=== PATIENT | female | born 1985 | race Caucasian/White ===

== ENCOUNTER 2019-08-19 12:36 | Inpatient (IN) | payer MEDICAID ==
[~2019-08-19] VITALS: Ht 162.6 cm; Wt 64.2 kg
[~2019-08-19 12:36] MED LIST: CLEOCIN HC150 MG/CAP PO; CLINDAMYCIN150 MG PO; FLEXERIL 1010 MG/TAB PO; IRON SUPPLEMENT; MACROBID 1100 MG/CAP PO; NAPROSYN500 MG PO; NO HOME MEDICATIONS; NORCO 325 MG-51 TAB PO; PHENERGAN 25 TA25 MG PO; PRENATAL VITAMI1 TA5 PO
[2019-08-19 13:22] LABS: BASO % 0.4 % (0.0-2.0); EOS % 0.1 % (0-4.0); GRAN # 8.6 (1.4-6.5); HEMATOCRIT 41.6 % (37.0-47.0); LYMPH # 0.9 (1.2-3.4); LYMPH % 8.9 % (20.0-51.0); MEAN CELL VOLUME 92 fl (80.0-100.0); MEAN CORPUSCULAR HEMOGLOBIN 31 pg (27.0-31.0); MEAN CORPUSCULAR HGB CONC 34 g/dl (33.0-37.0); MEAN PLATELET VOLUME 9.6 fl (7.4-10.4); MONO # 0.6 (0.1-0.6); MONO % 5.9 % (1.7-9.3); PLATELET COUNT 161 K/mm3 (130-400); RED BLOOD COUNT 4.54 M/mm3 (4.10-5.30); REDCELL DISTRIBUTION WIDTH-CV 12.2 % (11.5-14.5)
[2019-08-19 13:27] LABS: ALBUMIN 4.4 gm/dL (3.5-5.0); BILIRUBIN,TOTAL 1.4 mg/dL (0.0-1.0); CALCIUM 9.4 mg/dL (8.4-10.2); CREATININE, serum 0.94 (0.52-1.25); POTASSIUM 3.7 mmol/L (3.4-5.0)
[2019-08-19 13:38] LABS: C-REACTIVE PROTEIN 24.3 mg/dL (0.0-0.9)
[2019-08-19 14:21] LABS: COLLECTION METHOD CLEAN CATCH
[2019-08-19 14:37] LABS: MUCOUS Present /lpf; PH 5 (5-8); URINE APPEARANCE Hazy; URINE BACTERIA Many /hpf; URINE BILIRUBIN Positive (NEGATIVE); URINE BLOOD Negative (NEGATIVE); URINE COLOR Amber; URINE GLUCOSE Negative (NEGATIVE); URINE KETONE 1+ (NEGATIVE); URINE LEUKOCYTE ESTERASE Trace (NEGATIVE); URINE NITRATE Positive (NEGATIVE); URINE PROTEIN(semi-quant) 2+ (NEGATIVE); URINE UROBILINOGEN >=4.0 mg/dL (NEGATIVE)
[2019-08-19 17:56] VITALS: BP 103/60; PULSE 104; TEMP 98.9
--- NOTE | 2019-08-19 18:37 | NUR ---
Report received from ER nurse. Patient to room 349. Inital completed by Senior Analyst Programmer. Patient reports no home medication. 5 page assessment completed to the best of my ability, patient falling asleep easy. SHe does arouse easy. Patient reports being hot. Temp 98.9. Air turned down in room & cool wash cloth provided. Patient had small emesis upon arrival to room. Green in color. Prn Zofran given. Dilaudid Php Website Developer started. Verified with charge nurse Heidi. Iv in [place]. Will let patient rest & report off to night nurse. Update given to patient father.
[2019-08-19 19:33] VITALS: BP 101/64; PULSE 111; TEMP 98.8
[2019-08-19 19:45] VITALS: BP 101/64; PULSE 111
[2019-08-19 23:27] VITALS: BP 98/55; PULSE 98; TEMP 98.4
[2019-08-20] VITALS (11 sets, daily range): BP systolic 91–104; BP diastolic 49–67; PULSE 84–110; TEMP 98.1–99.3
--- NOTE | 2019-08-20 05:17 | NUR ---
Patient has rested well throughout the night. Noted to be drowsy from APPLICATION ARCHITECT MANAGER. APPLICATION ARCHITECT MANAGER continues and patient states her pain is managed. Continues on IV antibiotics. Noted to be tachycardic. Patient has had ice chips very sparingly this shift. IV to left AC flushes with ease. Bowel sounds noted to be hypoactive. Patient up to the bathroom with stand-by assist d/t pain medication making her feel "high". Gait noted to be steady. Noted to have some nausea and a little bit of emesis at the beginning of the shift. Patient has had no more emesis since then. Will continue to monitor.
--- NOTE | 2019-08-20 06:45 | NUR ---
appears to be sleeping, bedside shift report received from TIARRA Camargo
[2019-08-20 06:50] LABS: MEAN CELL VOLUME 93 fl (80.0-100.0); MEAN CORPUSCULAR HGB CONC 34 g/dl (33.0-37.0); MEAN PLATELET VOLUME 9.7 fl (7.4-10.4); PLATELET COUNT 149 K/mm3 (130-400); RED BLOOD COUNT 3.84 M/mm3 (4.10-5.30); REDCELL DISTRIBUTION WIDTH-CV 12.2 % (11.5-14.5)
[2019-08-20 07:11] LABS: HEMATOCRIT 35.6 % (37.0-47.0); MEAN CORPUSCULAR HEMOGLOBIN 31 pg (27.0-31.0)
--- NOTE | 2019-08-20 07:30 | NUR ---
awake and resting in bed with lights off, states pain is 8/10 and has been using AIRPLANE PILOT, no grimacing, moaning or moving about in bed, IV site intact without s/s of infiltration, denies needs at this time
--- NOTE | 2019-08-20 09:10 | NUR ---
full assessment completed, see interventions for further info, has continued to use GALLERY OR MUSEUM CURATOR and states it helps the pain, denies needs, taking ice chips sparingly
[2019-08-20 09:36] LABS: BAND 42 % (0-10); EOSINOPHIL 1 % (0-4); LYMPHOCYTE 12 % (20.0-51.0); NEUTROPHILS 40 % (42.0-75.2); PLATELET ESTIMATE NORMAL (NORMAL)
[2019-08-20 11:00] LABS: ALBUMIN 3.2 gm/dL (3.5-5.0); BILIRUBIN,TOTAL 0.9 mg/dL (0.0-1.0); CALCIUM 8.6 mg/dL (8.4-10.2); CREATININE, serum 0.72 (0.52-1.25); POTASSIUM 4.6 mmol/L (3.4-5.0); TOTAL PROTEIN 6.1 gm/dL (6.4-8.2)
--- NOTE | 2019-08-20 11:00 | NUR ---
Dr Moy was in to see patient, assisted her with am hygiene, states she is feeling a little better
--- NOTE | 2019-08-20 11:11 | NUR ---
SW met with patient to complete intake and discharge plan. Patient states that she lives with her mom Sabrina [phone], father Vincent [phone] and her two boys. Patient provides that she does not utilize any DME, and is independent with ADL's. Patient states that her PCP is Dr. Edilberto Enamorado, and states that she is able to afford her medications. She provides that she obtains her medications from [facility]. Patient states that she does not have a DPOA-HC, but would like to appoint her mom and dad. SW presented the DPOA-HC documentation to patient, but patient stated that she would like to review the documentation before completing. Patient states that she plans to go back to her home upon discharge, and feels safe doing so. Patient states she has no questions or concerns about discharge. SW to continue to follow.
--- NOTE | 2019-08-20 14:00 | NUR ---
has been resting through the late morning and afternoon, assisted up to bathroom and voids clear aden urine, then back to bed, continues to use ORDNANCE ENGINEERING TECHNICIAN for pain control
--- NOTE | 2019-08-20 18:50 | NUR ---
bedside shift report given to TIARRA Torrez
--- NOTE | 2019-08-20 20:00 | NUR ---
Report received, assumed care for hotel night auditor. Assessment complete. A&Ox3-drowsy. Reports pain of 6/10 in [id number] dilaudid helps significantly. Denies shortness of breath/nausea. IV to left AC infusing fluids without s/s of infiltration. Denies needs. Call light in reach. will monitor.
--- NOTE | 2019-08-20 21:00 | NUR ---
Called for assistance to get up to bathroom. Voided dark aden urine. Emesis of approx 50mls of light green fluid. Will continue to monitor.
[2019-08-21] VITALS (11 sets, daily range): BP systolic 93–104; BP diastolic 38–62; PULSE 61–98; TEMP 98.1–99.1
--- NOTE | 2019-08-21 04:00 | NUR ---
Rested off and on this shift. Dilaudid DIRECTOR OUTPATIENT SERVICES has decreased pain-states its within an acceptable range for her compared to before admit. Had one episode of emesis this shift-green in color-approx 50mls. Max temp this shift was 100.1. Gave IS and used every hour x10 reps-temp came down to 98.4. Denies current needs. Call light in reach. Will monitor.
[2019-08-21 06:42] LABS: CALCIUM 8.3 mg/dL (8.4-10.2); CREATININE, serum 0.67 (0.52-1.25); POTASSIUM 3.8 mmol/L (3.4-5.0)
[2019-08-21 06:44] LABS: HEMOGLOBIN 10.6 g/dl (12.5-16.0); MEAN CELL VOLUME 92 fl (80.0-100.0); MEAN CORPUSCULAR HEMOGLOBIN 32 pg (27.0-31.0); MEAN CORPUSCULAR HGB CONC 34 g/dl (33.0-37.0); MEAN PLATELET VOLUME 9.5 fl (7.4-10.4); PLATELET COUNT 127 K/mm3 (130-400); RED BLOOD COUNT 3.37 M/mm3 (4.10-5.30); REDCELL DISTRIBUTION WIDTH-CV 12.3 % (11.5-14.5)
--- NOTE | 2019-08-21 07:17 | NUR ---
Pt NODULIZER pump was beeping due to medication near ending. Pt hydromorphone NODULIZER vial was replaced at this time with a 30 ml vial at 2338. Pt has slept well thorughout the night. Pt has ambulated to the restroom several times. Pt is currently resting in bed and has her call light within reach.
[2019-08-21 08:07] LABS: BAND 13 % (0-10); LYMPHOCYTE 3 % (20.0-51.0); NEUTROPHILS 78 % (42.0-75.2); PLATELET ESTIMATE NORMAL (NORMAL)
--- NOTE | 2019-08-21 10:00 | NUR ---
Patient sleepy, arouses to verbal stimuli. Answers questions appropriately, but nods off frequently during exam. Abdomen soft, non tender, non distended. Bowel sounds active x4 quads. +Flatus. No c/o pain or discomfort. TAPE DECK INSTALLER settings verified against MAR.
--- NOTE | 2019-08-21 11:00 | NUR ---
Dr Moy notified of drowsiness, orders to modify REFUELING RAMP ATTENDANT received.
--- NOTE | 2019-08-21 15:17 | NUR ---
Dr Moy here to see patient.
--- NOTE | 2019-08-21 19:31 | NUR ---
Received report from TIARRA Brandt. Pt currently lying in bed and sleeping at this time she has her call light and REGULATORY SPECIALIST button within reach.
[2019-08-22] VITALS (10 sets, daily range): BP systolic 91–124; BP diastolic 46–68; PULSE 68–91; TEMP 98–99.9
--- NOTE | 2019-08-22 06:25 | NUR ---
Pt currently resting in bed, pt did call out due to her IV pump beeping. Pt IV was addressed and pt is lying in bed and has her call light and her COSMETICS SUPERVISOR button within reach.
[2019-08-22 06:41] LABS: BASO % 0.3 % (0.0-2.0); EOS # 0.2 (0.0-0.7); EOS % 1.7 % (0-4.0); GRAN # 7.7 (1.4-6.5); GRAN % 80.7 % (42.2-75.2); LYMPH # 0.8 (1.2-3.4); LYMPH % 7.8 % (20.0-51.0); MEAN CELL VOLUME 91 fl (80.0-100.0); MEAN CORPUSCULAR HGB CONC 34 g/dl (33.0-37.0); MONO # 0.8 (0.1-0.6); MONO % 8.2 % (1.7-9.3); PLATELET COUNT 140 K/mm3 (130-400); RED BLOOD COUNT 3.14 M/mm3 (4.10-5.30); REDCELL DISTRIBUTION WIDTH-CV 12.8 % (11.5-14.5)
[2019-08-22 06:43] LABS: HEMATOCRIT 28.6 % (37.0-47.0); HEMOGLOBIN 9.8 g/dl (12.5-16.0); MEAN CORPUSCULAR HEMOGLOBIN 31 pg (27.0-31.0)
--- NOTE | 2019-08-22 09:50 | NUR ---
Patient alert and oriented, answers questions appropriately. See assessment. Abdomen soft, non tender, non distended. Bowel sounds active x4 quads. +Flatus. No c/o pain or discomfort. No other c/o at this time.
[2019-08-23] VITALS: BP 102/50; PULSE 75; TEMP 99.2
[2019-08-23 04:05] VITALS: BP 90/50; PULSE 63; TEMP 98.5
--- NOTE | 2019-08-23 05:00 | NUR ---
Patient has been sleeping most the night. She had some increased pain this morning and increased N/V. Winslow seems to be controlling her pain most the time. Reminded her to not let it get out of control. Explained how often she can have it. No other changes at this time. Call light within reach.
--- NOTE | 2019-08-23 07:45 | NUR ---
Patient resting in bed. Called out, she had emesis. notifed. Orders to resume IVF. I had spoke to him this am as well and recieved lab orders. Zofran was given. She did refused breakfast at this time. Patient reports pain 9/10-may cause nausea. Iv dilaudid given. Patient also has been taking PO medication on an empty stomach which could also be influencing her nausea. Patient voiding, tea colored urine. She reports passing flatus, but no BM since admitted into the hospital. Reviewed the importance of this. Will monitor closely.
[2019-08-23 07:56] VITALS: BP 94/60; PULSE 65; TEMP 98.5
[2019-08-23 08:16] LABS: HEMOGLOBIN 10.8 g/dl (12.5-16.0); MEAN CELL VOLUME 90 fl (80.0-100.0); MEAN CORPUSCULAR HEMOGLOBIN 30 pg (27.0-31.0); MEAN CORPUSCULAR HGB CONC 34 g/dl (33.0-37.0); MEAN PLATELET VOLUME 9.1 fl (7.4-10.4); PLATELET COUNT 156 K/mm3 (130-400); RED BLOOD COUNT 3.58 M/mm3 (4.10-5.30); REDCELL DISTRIBUTION WIDTH-CV 13.1 % (11.5-14.5)
[2019-08-23 08:18] LABS: HEMATOCRIT 32.2 % (37.0-47.0)
[2019-08-23 08:26] LABS: CALCIUM 8.2 mg/dL (8.4-10.2); CREATININE, serum 0.63 (0.52-1.25); POTASSIUM 3.3 mmol/L (3.4-5.0)
--- NOTE | 2019-08-23 09:11 | NUR ---
notfied of low K+ level. Orders obtained. Patietn resting reports pain & nausea slightly improved
[2019-08-23 09:59] LABS: BAND 23 % (0-10); EOSINOPHIL 2 % (0-4); LYMPHOCYTE 20 % (20.0-51.0); METAMYELOCYTE 5 % (0-0); NEUTROPHILS 46 % (42.0-75.2); PLATELET ESTIMATE NORMAL (NORMAL)
[2019-08-23 11:33] VITALS: BP 93/52; PULSE 60; TEMP 97.8
--- NOTE | 2019-08-23 11:43 | NUR ---
First visit from the finishing inspector. No needs right now.
--- NOTE | 2019-08-23 14:12 | NUR ---
Patient resting in bed. She reports nausea is improoved, but minimal interest in food. Continues to rate pain elevated 8/10. Dilaudid request. Patient refused shower, acticity highly encouraged.
[2019-08-23 15:51] VITALS: BP 107/70; PULSE 72; TEMP 99.1
--- NOTE | 2019-08-23 19:44 | NUR ---
Patient continues to rest in bed. She was up and took a shower this afternoon, she reports that made her feel better. I encouraged ambulation in the hallway. No interest. K+ finished. Labs to be re drawn in am. She had no dinner, she did have a popcicle. Miko for nausea. Bedside report to Ava.
--- NOTE | 2019-08-23 21:27 | NUR ---
Patient transferred to room 321 per hospital management. House suporvisor notified patient. Bedside report to OB nurse. All questions answered.
[2019-08-23 22:26] VITALS: BP 106/70; PULSE 65; TEMP 99.5
[2019-08-24 03:15] VITALS: BP 101/62; PULSE 65; TEMP 98.8
[2019-08-24 07:13] LABS: HEMOGLOBIN 10.3 g/dl (12.5-16.0); MEAN CELL VOLUME 91 fl (80.0-100.0); MEAN CORPUSCULAR HEMOGLOBIN 30 pg (27.0-31.0); MEAN CORPUSCULAR HGB CONC 34 g/dl (33.0-37.0); PLATELET COUNT 173 K/mm3 (130-400); RED BLOOD COUNT 3.39 M/mm3 (4.10-5.30); REDCELL DISTRIBUTION WIDTH-CV 13.4 % (11.5-14.5)
[2019-08-24 07:15] LABS: HEMATOCRIT 30.7 % (37.0-47.0)
[2019-08-24 07:20] LABS: CREATININE, serum 0.61 (0.52-1.25); POTASSIUM 3.6 mmol/L (3.4-5.0)
[2019-08-24 07:25] VITALS: BP 100/60; PULSE 50; TEMP 98.6
--- NOTE | 2019-08-24 09:53 | NUR ---
IV TO LEFT AC INFILTRATED WITH D5NS RUNNING AT 75 ML/HR. SWELLING TO ARM AND HAND NOTED. IV SITE DISCONTINUED.
--- NOTE | 2019-08-24 10:00 | NUR ---
LEFT ARM SWOLLEN D/T INFILTRATED IV. WARM BLANKET APPLIED TO ARM.
[2019-08-24 10:25] LABS: BAND 15 % (0-10); EOSINOPHIL 3 % (0-4); LYMPHOCYTE 33 % (20.0-51.0); NEUTROPHILS 40 % (42.0-75.2)
[2019-08-24 10:30] LABS: PLATELET ESTIMATE NORMAL (NORMAL)
[2019-08-24 10:31] LABS: OVALOCYTES 1+
[2019-08-24 11:33] VITALS: BP 99/56; PULSE 58; TEMP 98.5
--- NOTE | 2019-08-24 13:00 | NUR ---
LEFT ARM REMAINS SWOLLEN R/T INFILTRATED IV. ARM ELEVATED ANS ICE PACK APPLIED.
--- NOTE | 2019-08-24 14:37 | NUR ---
CALL TO [facility] TO SEE OF THERE WAS A TIME FRAME DR. FERNANDO WOULD BE MAKING ROUNDS ON PATIENT. RN TOLD DR FERNANDO HAS BEEN WORKING IN [place] ALL MORNING AND JUST GOT TO THE [facility] OFFICE, SO SHOULD BE MAKING ROUNDS THIS AFTERNOON. STRINGER UP SOLDERING MACHINE WILL LET DR. FERNANDO'S NURSE KNOW THAT PATIENT HAS NOT BEEN SEEN TODAY.
--- NOTE | 2019-08-24 14:46 | NUR ---
PATIENT SLEEPING COMFORTABLY. IVF RUNNING AT 75 MLS/HOUR. PATIENT HAS BEEN SIPPING WATER AND SPRITE THROUGHOUT DAY, DENIES HAVING AN APPETITE AND C/O INTERMITTANT NAUSEA WITHOUT VOMITING.
[2019-08-24 16:33] VITALS: BP 1611/62; PULSE 51; TEMP 97.8
--- NOTE | 2019-08-24 17:26 | NUR ---
Dr. Moy here to assess patient. See physician documentation.
[2019-08-24 19:00] VITALS: BP 108/59; PULSE 50; TEMP 98; TEMP 98.8
[2019-08-24 23:30] VITALS: BP 114/62; PULSE 50; TEMP 98.8
[2019-08-25] VITALS (20 sets, daily range): BP systolic 103–120; BP diastolic 61–78; PULSE 53–88; TEMP 98.2–101.4
[2019-08-25 07:45] LABS: HEMOGLOBIN 11.1 g/dl (12.5-16.0); MEAN CELL VOLUME 90 fl (80.0-100.0); MEAN CORPUSCULAR HEMOGLOBIN 30 pg (27.0-31.0); MEAN CORPUSCULAR HGB CONC 34 g/dl (33.0-37.0); PLATELET COUNT 188 K/mm3 (130-400); RED BLOOD COUNT 3.65 M/mm3 (4.10-5.30); REDCELL DISTRIBUTION WIDTH-CV 13.5 % (11.5-14.5)
[2019-08-25 08:03] LABS: BAND 24 % (0-10); BASOPHIL 1 % (0-2); EOSINOPHIL 2 % (0-4); LYMPHOCYTE 13 % (20.0-51.0); METAMYELOCYTE 4 % (0-0); NEUTROPHILS 52 % (42.0-75.2); OVALOCYTES 1+
[2019-08-25 08:04] LABS: PLATELET ESTIMATE NORMAL (NORMAL)
--- NOTE | 2019-08-25 09:41 | NUR ---
9078 PATIENT STATES FEELS WORSE TODAY. DECREASED BOWEL SOUNDS NOTED. DR FERNANDO AT BEDSIDE TO ASSESS AND DISCUSS OPTIONS WITH PATIENT.
--- NOTE | 2019-08-25 10:22 | NUR ---
[address] WITH STAFF FOR A CT SCAN PER DR ORDER, PATIENT SENT VIA WHEELCHAIR.
--- NOTE | 2019-08-25 10:35 | NUR ---
PT WAS BROUGHT DOWN IN HER BED AND TRANSFERED TO TABLE. MONITORING EQUIPMENT PLACED AND IMAGING DONE.
--- NOTE | 2019-08-25 11:20 | NUR ---
[address] DRAIN PLACED BY REPORT RECIEVED AT THIS TIME. ASSIST PATIENT TO BED WITH MINIMAL ASSIST. PATIENT STATES HAS LESS PAIN AND NEASEA AT THIS TIME. VITAL SIGNS WNL.
--- NOTE | 2019-08-25 11:43 | NUR ---
1145 PATIENT RATES PAIN A 8OUT OF 10 BUT DOES NOT WANT PAIN MEDS AT THIS TIME.
--- NOTE | 2019-08-25 12:30 | NUR ---
1230 REPORT GIVEN TO SURGICAL NURSE RN TO ASSUME CARE AT THIS TIME.
--- NOTE | 2019-08-25 12:50 | NUR ---
Patient to room from L&D via wheelchair. Patient feels cold and is shivering. Having increase in pain in abd with all the movement. Patient transfers self to bed with stand by assist. Drain to right lower abd patent with minimal thick drainage noted in bag and tubing. Dressing to drain site CDI. Patient would like pain medication at this time. Will administer medication as prescribed at this time.
--- NOTE | 2019-08-25 15:33 | NUR ---
Patient has temp of 101.4. Dr. Moy notified. Orders received for ibuprofen. Will administer at this time.
--- NOTE | 2019-08-25 18:15 | NUR ---
Patient lying in bed with eyes open. Temp down to 99.5 orally. Patient says that her pain is not bad at this time. Drain to right lower abd with minimal drainage noted. Patient denies needs at this time.
[2019-08-26] VITALS (7 sets, daily range): BP systolic 104–117; BP diastolic 60–71; PULSE 59–93; TEMP 98.1–100.2
--- NOTE | 2019-08-26 05:09 | NUR ---
Patient has rested well throughout the night. Noted to have a temperature at 101.4. PRN Flowood given. Slightly effective. Temperature was reduced to 100.4. PRN Motrin given and temperature was reduced to 99.4. Patient had stated she had a "really bad headache" and the motrin was most effective. Drain to right abdomen to dependent drainage. Patient states feeling very weak. IVF continue to right hand. Bowel sounds hypoactive. Patient denies any further needs. Will continue to monitor.
[2019-08-26 08:13] LABS: BASO # 0.1 (0.0-0.2); BASO % 0.5 % (0.0-2.0); EOS # 0.1 (0.0-0.7); EOS % 0.3 % (0-4.0); GRAN # 19.1 (1.4-6.5); GRAN % 85.5 % (42.2-75.2); HEMOGLOBIN 11.4 g/dl (12.5-16.0); LYMPH # 1.5 (1.2-3.4); LYMPH % 6.5 % (20.0-51.0); MEAN CELL VOLUME 91 fl (80.0-100.0); MEAN CORPUSCULAR HEMOGLOBIN 31 pg (27.0-31.0); MEAN CORPUSCULAR HGB CONC 34 g/dl (33.0-37.0); MEAN PLATELET VOLUME 9.1 fl (7.4-10.4); MONO # 0.7 (0.1-0.6); PLATELET COUNT 221 K/mm3 (130-400); RED BLOOD COUNT 3.71 M/mm3 (4.10-5.30); REDCELL DISTRIBUTION WIDTH-CV 13.9 % (11.5-14.5)
[2019-08-26 08:34] LABS: HEMATOCRIT 33.6 % (37.0-47.0)
--- NOTE | 2019-08-26 08:44 | NUR ---
notifed of critical WBC. He was also made aware of patient oral thursh on her tounge. Orders obtained. Patient reports she has had thrush before. Patient reports nausea it is intermittent. No appetite. Pain at drain site. Pain radiates to her R. thigh. Purulent drainage noted in her drain site.
[2019-08-26 09:10] LABS: CALCIUM 8.7 mg/dL (8.4-10.2); CREATININE, serum 0.5 (0.52-1.25); POTASSIUM 3.3 mmol/L (3.4-5.0)
--- NOTE | 2019-08-26 09:40 | NUR ---
Patient did have emesis after nystatin swish & swallow, refused zofran. Ice pack & cool cloth provided.
--- NOTE | 2019-08-26 11:55 | NUR ---
rounded. PO intake & activity to be highly encouraged today.
--- NOTE | 2019-08-26 13:53 | NUR ---
Patient resting in bed. She was up to the bathroom & voided, dark urine. We ambulated the halls, she was slow to move & felt weak.
--- NOTE | 2019-08-26 19:24 | NUR ---
was notifed this evening of patients low grade temp & Emesis. Orders obtained. Once K+ completed infusing, procalimine to start per orders. K+ had to infuse slowly due to burning in patients hand for IV. Patient continues to refuse zofran, but did take Iv pain medication because she believed increased pain caused her emesis. Drain remains to DD with purulent output. Patient did ambulated the halls again this evening. Report to Mary Jo MAYEN
--- NOTE | 2019-08-27 03:31 | NUR ---
Patient completed potassium infusion. New IV started to right forearm d/t starting IV nutrition. Patient continues on IV antibiotics. Patient continues on nystatin for her thrush. Patient was unable to swallow the nystatin d/t vomiting, but she was able to swish and spit. Patient complained of heartburn. Dr. Pavon notified and ordered TUMS 500-1000mg q4hr as needed. EMAR updated. TUMS administered. Patient stated it was slightly effective. Noted to have a fever at 101.4. PRN Motrin administered and patient immediately had emesis. Patient did not throw up her motrin. Fever reduced to 99.4. Patient c/o burning to her tongue after emesis. Patient appears to be to be in better spirits and more talkative tonight than my last shift with her. Drain has scant drainage in it. Will continue to monitor patient.
[2019-08-27 04:05] VITALS: BP 104/68; PULSE 98; TEMP 99
--- NOTE | 2019-08-27 06:34 | NUR ---
Attempted to flush INT to right hand. Resistance met and liquid noted to leak around catheter site. New 20G placed in left hand. Flushes with ease.
[2019-08-27 07:35] LABS: HEMOGLOBIN 11.1 g/dl (12.5-16.0); MEAN CELL VOLUME 90 fl (80.0-100.0); MEAN CORPUSCULAR HEMOGLOBIN 30 pg (27.0-31.0); MEAN CORPUSCULAR HGB CONC 34 g/dl (33.0-37.0); MEAN PLATELET VOLUME 10.1 fl (7.4-10.4); PLATELET COUNT 198 K/mm3 (130-400); RED BLOOD COUNT 3.66 M/mm3 (4.10-5.30); REDCELL DISTRIBUTION WIDTH-CV 13.9 % (11.5-14.5)
[2019-08-27 07:52] LABS: HEMATOCRIT 33.1 % (37.0-47.0)
[2019-08-27 07:57] VITALS: BP 108/72; PULSE 103; TEMP 98.4
[2019-08-27 09:04] LABS: CALCIUM 8.4 mg/dL (8.4-10.2); CREATININE, serum 0.47 (0.52-1.25); POTASSIUM 4.1 mmol/L (3.4-5.0)
[2019-08-27 09:46] LABS: BAND 15 % (0-10); LYMPHOCYTE 6 % (20.0-51.0); NEUTROPHILS 77 % (42.0-75.2)
[2019-08-27 09:47] LABS: PLATELET ESTIMATE NORMAL (NORMAL)
[2019-08-27 11:21] VITALS: BP 115/72; PULSE 74; TEMP 98
[2019-08-27 15:21] VITALS: BP 104/72; PULSE 80; TEMP 98.3
--- NOTE | 2019-08-27 18:54 | NUR ---
Patient has been doing very well today. Her intake has been better and no nausea. She has perked up more. She walked 4 times in the hallways. She sat up in the chair most the day. Minimal output from the drain. Minimal complaints of pain. She is hoping that if she eats more they won't start the TPN tomorrow. No other changes at this time. Call light within reach.
[2019-08-27 20:00] VITALS: BP 103/74; PULSE 80; TEMP 98
[2019-08-28] VITALS (7 sets, daily range): BP systolic 99–109; BP diastolic 37–72; PULSE 72–89; TEMP 97.9–98.8
[2019-08-28 05:44] LABS: HEMATOCRIT 34.5 % (37.0-47.0); HEMOGLOBIN 12.1 g/dl (12.5-16.0); MEAN CELL VOLUME 89 fl (80.0-100.0); MEAN CORPUSCULAR HEMOGLOBIN 31 pg (27.0-31.0); MEAN CORPUSCULAR HGB CONC 35 g/dl (33.0-37.0); MEAN PLATELET VOLUME 9.8 fl (7.4-10.4); PLATELET COUNT 221 K/mm3 (130-400); RED BLOOD COUNT 3.88 M/mm3 (4.10-5.30); REDCELL DISTRIBUTION WIDTH-CV 14.1 % (11.5-14.5)
[2019-08-28 05:57] LABS: CALCIUM 8.7 mg/dL (8.4-10.2); CREATININE, serum 0.49 (0.52-1.25); POTASSIUM 4.2 mmol/L (3.4-5.0)
--- NOTE | 2019-08-28 08:00 | NUR ---
Patient resting in bedside recliner eating breakfast at this time. IV antibiotics completed, patient is very sensitive to IV flushes. IV procalamine infusing per order. Patient denies needs at this time, call light within reach.
--- NOTE | 2019-08-28 10:52 | NUR ---
ANITA met with the patient to follow up and review discharge plan. The patient reports that she is doing a lot better now. She states that was up and walking yesterday and hopeful to get off of all IVs soon and take everything orally. She states that she still plans to returning back home with her family upon discharge. No additional needs at this time.
--- NOTE | 2019-08-28 17:47 | NUR ---
Patient resting in bedside recliner at this time. Patient has been independent in her room today, has ambulated in the halls with SBA a few times. Patient has denied pain that is not associated with IV flushes. Patient has eaten at least 40% of her meals today and has not had any episodes of nausea or emesis since this morning. MARYAM has had minimal output today, drain flushed per order with no results. Patient denies needs at this time, call light within reach.
--- NOTE | 2019-08-28 20:30 | NUR ---
Pt A/Ox4. Independent and ambulatory. Pt ambulated in hallways this evening. Denies pain, only tenderness to abdomen. Wound drainage bag intact to RLQ, dressing CDI. INT to LH and RFA intact, flushed, dressing CDI. Meds administered, pt refused nystatin and nicoderm patch at this time. Needs met at this time. Call light within reach. PRN tums administered as requested.
[2019-08-29 03:56] VITALS: BP 93/61; PULSE 74; TEMP 98
[2019-08-29 05:47] LABS: BASO # 0.1 (0.0-0.2); BASO % 0.4 % (0.0-2.0); EOS # 0.1 (0.0-0.7); EOS % 0.6 % (0-4.0); GRAN # 12.5 (1.4-6.5); GRAN % 73.3 % (42.2-75.2); LYMPH # 3.2 (1.2-3.4); LYMPH % 18.5 % (20.0-51.0); MEAN CELL VOLUME 91 fl (80.0-100.0); MEAN CORPUSCULAR HGB CONC 34 g/dl (33.0-37.0); MEAN PLATELET VOLUME 10.5 fl (7.4-10.4); MONO % 5.6 % (1.7-9.3); RED BLOOD COUNT 2.58 M/mm3 (4.10-5.30); REDCELL DISTRIBUTION WIDTH-CV 14.4 % (11.5-14.5)
[2019-08-29 05:51] LABS: HEMATOCRIT 23.5 % (37.0-47.0); HEMOGLOBIN 7.9 g/dl (12.5-16.0); MEAN CORPUSCULAR HEMOGLOBIN 31 pg (27.0-31.0); PLATELET COUNT 397 K/mm3 (130-400)
--- NOTE | 2019-08-29 07:02 | NUR ---
Report given to TIARRA Ponce.
[2019-08-29 07:35] VITALS: BP 94/57; PULSE 76; TEMP 97.4
--- NOTE | 2019-08-29 07:52 | NUR ---
Sitting up in chair with eyes open. Minimal pain at this time, some tenderness to right lower abd that increases with movement. Drain to right lower abd to dependent drainage with scant amount of purulent discharge noted in bag, dressing with minimal light pink discharge. Patient says that she is feeling okay and is hoping to go home today. Denies additional needs at this time.
--- NOTE | 2019-08-29 09:51 | NUR ---
Sitting up in recliner with eyes open. Explain that orders have been placed for CT. Patient verbalizes understanding and denies any additional needs at this time.
--- NOTE | 2019-08-29 11:20 | NUR ---
Patient to CT via wheel chair at this time.
--- NOTE | 2019-08-29 11:30 | NUR ---
Initial visit; Selling Specialist introduced herself to patient letting her know that our hospital offers spiritual care to all patients. Patient thanked Selling Specialist though declined at this time.
--- NOTE | 2019-08-29 11:38 | NUR ---
Patient back to room from CT via wheelchair.
[2019-08-29 12:00] VITALS: BP 95/63; PULSE 85; TEMP 98.2
--- NOTE | 2019-08-29 12:36 | NUR ---
Sitting up in recliner watching TV. Denies needs or concerns at this time.
[2019-08-29] MEDS ORDERED: LEVAQUIN 750MG750 M1 PO (14:10)
[2019-08-29] MEDS ORDERED: NYSTATIN OR100 MU/ML PO (14:11)
[2019-08-29] MEDS ORDERED: FLAGYL500 MG PO (14:11)
[2019-08-29] MEDS ORDERED: NORCO 325 MG-51 TAB PO (14:12)
--- NOTE | 2019-08-29 14:39 | NUR ---
Reveiwed all discharge instructions with the patient. Denies questions. Patient signs all discharge documents. Discharge packet provided to the patient. Patient will notify staff when her ride is here to pick her up.
--- NOTE | 2019-08-29 14:53 | NUR ---
Patient calls and says that her ride is here to pick her up. Patient assisted out to POV with all belongings via wheelchair.
== END 2019-08-29 14:54 | disposition home or self-care (01) | DRG 372 ==
LOC: COL.ER 12:36 → SURG 16:11 → OB 16:11 → SURG 08-25 12:51
PROVIDERS: Family Medicine; Physician Assistant; Surgery; ADMIT Surgery
PROC: 0D9J3ZZ Drainage of Appendix, Percutaneous Approach (ICD-10-PCS; principal; 2019-08-25)
DX: K35.33 Acute appendicitis with perforation, localized peritonitis, and gangrene, with abscess (principal); E44.0 Moderate protein-calorie malnutrition; F17.210 Nicotine dependence, cigarettes, uncomplicated; E87.6 Hypokalemia
CPT/HCPCS: A9284; C1729; J1170; J1650; J1956; J2250; J2405; J3010; J3480; J7042; J7120; Q9967

== ENCOUNTER 2020-08-14 15:02 | Emergency (ER) | payer MEDICAID ==
[~2020-08-14] VITALS: Ht 162.6 cm; Wt 65.0 kg
[~2020-08-14 15:02] MED LIST changes: +FLAGYL500 MG PO; +LEVAQUIN 5500 MG/TA1 PO; +LEVAQUIN 750MG750 M1 PO; +NYSTATIN OR100 MU/ML PO
[2020-08-14 15:31] VITALS: TEMP 98.7
[2020-08-14 16:00] LABS: COLLECTION METHOD CLEAN CATCH
[2020-08-14 16:03] LABS: BASO % 0.2 % (0.0-2.0); EOS # 0.1 (0.0-0.7); EOS % 1.4 % (0-4.0); GRAN # 2.7 (1.4-6.5); HEMOGLOBIN 13.2 g/dl (12.5-16.0); LYMPH # 1.8 (1.2-3.4); LYMPH % 36.3 % (20.0-51.0); MEAN CELL VOLUME 90 fl (80.0-100.0); MEAN CORPUSCULAR HEMOGLOBIN 30 pg (27.0-31.0); MEAN CORPUSCULAR HGB CONC 34 g/dl (33.0-37.0); MEAN PLATELET VOLUME 9.3 fl (7.4-10.4); MONO # 0.5 (0.1-0.6); MONO % 8.9 % (1.7-9.3); PLATELET COUNT 189 K/mm3 (130-400); RED BLOOD COUNT 4.34 M/mm3 (4.10-5.30); REDCELL DISTRIBUTION WIDTH-CV 12.5 % (11.5-14.5)
[2020-08-14 16:09] LABS: PH 8 (5-8); SQUAMOUS EPITHELIAL 0-2 /hpf; URINE APPEARANCE Clear; URINE BACTERIA Rare /hpf; URINE BILIRUBIN Negative (NEGATIVE); URINE BLOOD Negative (NEGATIVE); URINE COLOR Straw; URINE GLUCOSE Negative (NEGATIVE); URINE KETONE Negative (NEGATIVE); URINE LEUKOCYTE ESTERASE Negative (NEGATIVE); URINE NITRATE Negative (NEGATIVE); URINE PROTEIN(semi-quant) Negative (NEGATIVE); URINE RBC None Seen /hpf; URINE UROBILINOGEN Negative (NEGATIVE)
[2020-08-14 16:30] LABS: ALANINE AMINOTRANSFERASE 14 U/L (4-34); ALBUMIN 4.3 gm/dL (3.5-5.0); ALKALINE PHOSPHATASE 54 U/L (50-136); ANION GAP 3 mmol/L (7-16); AST,SGOT 27 U/L (15-37); BILIRUBIN,TOTAL 0.5 mg/dL (0.0-1.0); BLOOD UREA NITROGEN 5 mg/dL (7-17); CALCIUM 9.3 mg/dL (8.4-10.2); CARBON DIOXIDE 24 mmol/L (22-30); CHLORIDE 111 mmol/L (98-107); CREATINE KINASE 66 U/L (30-135); CREATININE, serum 0.67 (0.52-1.25); GLUCOSE 92 mg/dL (74-106); POTASSIUM 3.7 mmol/L (3.4-5.0); SODIUM 138 mmol/L (137-145); TOTAL PROTEIN 7.5 gm/dL (6.4-8.2)
[2020-08-14 16:39] LABS: C-REACTIVE PROTEIN < 0.5 mg/dL (0.0-0.9)
[2020-08-14 17:20] VITALS: BP 106/69; PULSE 62
== END 2020-08-14 17:20 | disposition home or self-care (01) ==
LOC: COL.ER 15:02
PROVIDERS: Nurse Practitioner
DX: R42 Dizziness and giddiness (principal); R51.9 Headache, unspecified; R53.83 Other fatigue; F17.210 Nicotine dependence, cigarettes, uncomplicated; Z20.822 Contact with and (suspected) exposure to COVID-19; Z88.0 Allergy status to penicillin
CPT/HCPCS: J1885; J2405; J7030

== ENCOUNTER 2020-12-08 21:18 | Emergency (ER) | payer MEDICAID ==
[~2020-12-08] VITALS: Ht 162.6 cm; Wt 65.9 kg
[2020-12-08 21:45] LABS: BASO % 0.2 % (0.0-2.0); EOS % 0.2 % (0-4.0); GRAN # 10.8 K/mm3 (1.4-6.5); GRAN % 82.8 % (42.2-75.2); HEMOGLOBIN 15.5 g/dl (12.5-16.0); LYMPH # 1.6 K/mm3 (1.2-3.4); MEAN CELL VOLUME 88 fl (80.0-100.0); MEAN CORPUSCULAR HEMOGLOBIN 31 pg (27.0-31.0); MEAN CORPUSCULAR HGB CONC 35 g/dl (33.0-37.0); MEAN PLATELET VOLUME 8.6 fl (7.4-10.4); MONO # 0.6 K/mm3 (0.1-0.6); MONO % 4.4 % (1.7-9.3); PLATELET COUNT 269 K/mm3 (130-400); RED BLOOD COUNT 4.99 M/mm3 (4.10-5.30); REDCELL DISTRIBUTION WIDTH-CV 12.5 % (11.5-14.5)
[2020-12-08 22:08] LABS: ALBUMIN 4.7 gm/dL (3.5-5.0); BILIRUBIN,TOTAL 0.8 mg/dL (0.2-1.2); CALCIUM 10.4 mg/dL (8.4-10.2); CREATININE, serum 0.89 mg/dL (0.57-1.11); POTASSIUM 4.4 mmol/L (3.5-4.5)
[2020-12-09] MEDS ORDERED: ZOFRAN ODT4 MG PO (00:11)
[2020-12-09 00:23] VITALS: BP 101/63; PULSE 56; TEMP 98.7
== END 2020-12-09 00:23 | disposition home or self-care (01) ==
LOC: COL.ER 21:18
PROVIDERS: Personal Emergency Response Attendant
DX: R10.10 Upper abdominal pain, unspecified (principal); R11.2 Nausea with vomiting, unspecified; F17.210 Nicotine dependence, cigarettes, uncomplicated
CPT/HCPCS: J2270; J2405; J7030; Q9967

== ENCOUNTER 2021-10-09 17:14 | Emergency (ER) | payer MEDICAID ==
[~2021-10-09] VITALS: Ht 162.6 cm; Wt 66.8 kg
[~2021-10-09 17:14] MED LIST changes: +ZOFRAN ODT4 MG PO
[2021-10-09 17:17] VITALS: TEMP 98.3
[2021-10-09 17:58] LABS: BASO % 0.1 % (0.0-2.0); EOS % 0.1 % (0.0-4.0); GRAN # 3.8 K/mm3 (1.4-6.5); HEMOGLOBIN 12.8 g/dl (12.5-16.0); LYMPH # 2.8 K/mm3 (1.2-3.4); LYMPH % 39.7 % (20.0-51.0); MEAN CELL VOLUME 87 fl (80.0-100.0); MEAN CORPUSCULAR HEMOGLOBIN 31 pg (27-31); MEAN CORPUSCULAR HGB CONC 36 g/dl (33.0-37.0); MEAN PLATELET VOLUME 9.1 fl (7.4-10.4); MONO # 0.5 K/mm3 (0.1-0.6); MONO % 6.7 % (1.7-9.3); PLATELET COUNT 167 K/mm3 (130-400); RED BLOOD COUNT 4.13 M/mm3 (4.10-5.30); REDCELL DISTRIBUTION WIDTH-CV 11.6 % (11.5-14.5)
[2021-10-09 18:11] LABS: BILIRUBIN,TOTAL 0.4 mg/dL (0.2-1.2); CREATININE, serum 0.8 mg/dL (0.57-1.11); POTASSIUM 3.3 mmol/L (3.5-4.5); TOTAL PROTEIN 6.8 gm/dL (6.2-8.1)
[2021-10-09 18:17] LABS: HEMATOCRIT 35.8 % (37.0-47.0)
[2021-10-09 18:29] LABS: COLLECTION METHOD CLEAN CATCH
[2021-10-09 18:33] LABS: PH 7.5 (5.0-8.5); URINE APPEARANCE Clear (CLEAR/HAZY); URINE BLOOD Negative (NEGATIVE); URINE COLOR Yellow (YELLOW); URINE GLUCOSE Negative (NEGATIVE); URINE KETONE Negative (NEGATIVE); URINE NITRATE Negative (NEGATIVE); URINE PROTEIN(semi-quant) Negative (NEGATIVE); URINE UROBILINOGEN 0.2 E.U/dL (0.2-1.0)
[2021-10-09 18:35] LABS: MUCOUS Present (NOT PRESENT); SQUAMOUS EPITHELIAL 0-2 /hpf (0-10); URINE BACTERIA Rare /hpf (NONE SEEN); URINE RBC 0-2 /hpf (0-2)
[2021-10-09 18:55] VITALS: BP 111/71; PULSE 50
== END 2021-10-09 19:00 | disposition home or self-care (01) ==
LOC: COL.ER 17:14
PROVIDERS: Nurse Practitioner
DX: R20.2 Paresthesia of skin (principal); F17.210 Nicotine dependence, cigarettes, uncomplicated; Z91.040 Latex allergy status; Z86.16 Personal history of COVID-19
CPT/HCPCS: J7030

== ENCOUNTER → 2021-10-31 | Outpatient (CLI) | payer MEDICAID | LOC: COL.RAD 13:15 | DX: M75.102 Unspecified rotator cuff tear or rupture of left shoulder, not specified as traumatic (principal) ==

== ENCOUNTER 2023-10-15 06:23 | Emergency (ER) | payer SELFPAY ==
[~2023-10-15] VITALS: Ht 162.6 cm; Wt 62.3 kg
[2023-10-15 06:32] VITALS: BP 104/66; TEMP 98
[2023-10-15] MEDS ORDERED: Acetaminophen 500 MG TAB PO ONE (07:00)
[2023-10-15 08:04] VITALS: PULSE 70
== END 2023-10-15 08:06 | disposition home or self-care (01) ==
LOC: COL.ER 06:23
DX: S63.501A Unspecified sprain of right wrist, initial encounter (principal); Z91.040 Latex allergy status; W05.1XXA Fall from non-moving nonmotorized scooter, initial encounter; Y93.55 Activity, bike riding